=== PATIENT | male | born 1930 | race Caucasian/White ===

== ENCOUNTER 2016-10-11 11:29 | Outpatient (CLI) | payer OTHER ==
[~2016-10-11 11:29] MED LIST: FLOMAX0.4 MG PO; FLUTICASONE PR50 MCG; LIDODERM5 % TOP; MIRALAX3350 N1 PO; MIRTAZAPINE30 MG PO; MORPHINE SULFAT30 M4 PO; OXAYDO5 MG PO; PRILOSEC20 MG PO; TIZANIDINE HCL2 MG PO; TRAZODONE HCL50 MG PO; TRIAMCINOLONE A0.11 TOP; VOLTAREN1 % TOP
--- NOTE | 2016-10-11 12:14 | DIAGNOSTIC IMAGING REPORT ---
PROCEDURE: XR CHEST 2 VIEW INDICATION: PNEUMONIA TECHNIQUE: PA and lateral views. COMPARISON: Chest 07/09/2016 FINDINGS: Left lower lobe and lingular infiltrate, volume loss and pleural effusion. Right lung is clear. There is a hiatal hernia. IMPRESSION: 1. Left lower lobe and lingular infiltrate, volume loss and pleural effusion.
== END 2016-10-11 23:00 ==
LOC: XR SRH 11:29
DX: J18.9 Pneumonia, unspecified organism (principal); J90 Pleural effusion, not elsewhere classified

== ENCOUNTER 2016-10-19 09:21 | Emergency (ER) | payer OTHER ==
--- NOTE | 2016-10-19 11:24 | DIAGNOSTIC IMAGING REPORT ---
PROCEDURE: XR CHEST 2 VIEW INDICATION: COUGH TECHNIQUE: PA and lateral views. COMPARISON: Chest 10/11/2016 FINDINGS: Left lower lobe and lingular infiltrate, volume loss and pleural effusion. Right lung is clear. There is a hiatal hernia. IMPRESSION: 1. Left lower lobe and lingular infiltrate, volume loss and pleural effusion. 2. No change from 10/11/16
--- NOTE | 2016-10-19 11:30 | DIAGNOSTIC IMAGING REPORT ---
PROCEDURE: XR HIP 2VW W W/O AP PELVIS-RT INDICATION: PAIN IN JOINT TECHNIQUE: AP view of the pelvis and hips with lateral view of the right hip. COMPARISON: Hip and pelvis films 07/09/2016 FINDINGS: RIGHT HIP: Fracture has been fixed with the three long screws. Osseous structures and joint spaces are otherwise normal. PELVIS: Osseous pelvis is normal. There are metal surgical coils overlying the lower pelvis (prior hernia repairs). There are arterial vascular calcifications of the femoral arteries. IMPRESSION: 1. Three screws fixing the right femoral neck fracture. Anatomic alignment. 2. Negative pelvis.
--- NOTE | 2016-10-19 11:46 | ED ORDER SUMMARY ---
..... Patient: FATMATA SUAREZ OrderSheet [facility] VisitID: [id number] [address] [place] [address] 86y, M Registration Date/Time: 10/19/2016 ORDER SHEET Weight: 56.6 kg (stated) Allergies: None GENERAL ORDERS: Chest 2V Urgent (09:57 10/19/2016 Ayala SHEPHERD) (Ack 10:04 Leti) (10:21 SRoberts R.N.) Hip 2V Right w AP Pelvis Urgent (09:57 10/19/2016 Ayala SHEPHERD) (Ack 10:04 Leti) (10:21 SRoberts R.N.) MEDICATION ORDERS: Toradol IM 60 mg (NOW) (11:41 10/19/2016 Ayala SHEPHERD) (11:58 EBENullivan R.N.) IV FLUIDS: ORDER SHEET NOTES: [Electronically signed by Gini Salvador R.N. (12:03 10/19/2016)] [Electronically signed by Robinson Ta MD (13:25 10/19/2016)] [Electronically locked/signed by Gini Salvador R.N. (12:03 10/19/2016)]
--- NOTE | 2016-10-19 11:46 | ED CLINICAL REPORT ---
Clinical Report - Physicians/Mid Levels [facility] [address] [place] [address] 10/19/2016 9:22 [id number] Time Seen: 09:49 Oct 19 2016. Arrived- By private vehicle. Historian- patient. Note: (Surgery on the right hip 3 months ago for a fracture.). CPT: ER phys charges level 4 (#[id number]). HISTORY OF PRESENT ILLNESS Chief Complaint: LOWER EXTREMITY PAIN. This started today and is still present (Worked hard outside yesterday and may be the reason for the hip pain.). Severity is described as being moderate. The quality is noted to be sharp, aching and "pain". No radiation. Symptoms located in the area of the right hip. The patient has not had redness. No swelling, bladder dysfunction, bowel dysfunction, sensory loss or motor loss. He has had difficulty walking. Patient denies an injury. Similar symptoms previously: None. Recent medical care: Not recently seen/assessed. REVIEW OF SYSTEMS No cough, chest pain, difficulty breathing, fever or skin rash. No enlarged lymph nodes, neck pain, back pain, abdominal pain or vomiting. chronic right knee pain, Recently finished antibiotics for pneumonia. Feels pain with breath on the left side. Has a cough. All systems otherwise negative, except as recorded above. PAST HISTORY ( Atrial Fibrillation. Femur Fracture. Anxiety Reaction. Dementia. Sleep Apnea. Arthritis. Allergic Rhinitis. Carpal Tunnel Syndrome. Folkuno-Qkinu-Zasdo disease. Constipation. Chronic pain. Hemorrhoids. ADDITIONAL SURGERIES: Foot surgery. Hernia Repair. Leg surgery). Medications: Flomax Oral 0.4 mg, daily. Fluticasone Propionate Nasal (Suspension 50 mcg/act) 2 sprays each nare, daily. Lidoderm External (Patch 5 %), every 12 hrs. MiraLax Oral 1 packet, daily. Mirtazapine Oral 30 mg, at bedtime. MS Contin Oral (Tablet Extended Release 30 mg) 1 tablet, 2x a day. Omeprazole Oral 20 mg, daily. OxyCODONE HCl Oral 5 mg, 3every 4 hrs as needed. TiZANidine HCl Oral (Capsule 2 mg) 1 capsule, 3x a day. TraZODone HCl Oral 25-100mg , at bedtime. Triamcinolone Acetonide External. Voltaren Gel, 4x a day (2 gm upper extremity 4gm lower extremity). Allergies: None. SOCIAL HISTORY Never smoker. No alcohol use or drug use. ADDITIONAL NOTES The nursing notes have been reviewed. PHYSICAL EXAM Vital Signs: 10/19/2016 09:48 BP: 125/69. HR: 65. RR: 16. O2 saturation: 97%. Pain level now: 01/02. 10/19/2016 09:37 Temp: 97.9 F. Appearance: Alert. Patient in mild distress. Eyes: Eyes normal inspection. ENT: Pharynx normal. Neck: Normal inspection. CVS: Normal heart rate and rhythm. Heart sounds normal. Respiratory: No respiratory distress. Breath sounds normal. Abdomen: Soft and nontender. Back: No tenderness. Skin: Skin intact. Skin warm. Normal skin color. Extremities: Right hip: mild tenderness located in the anterior and lateral aspect of the hip. Limited ROM secondary to pain (diminished external and internal rotation). Neurovascular intact distally. No swelling, laceration, abrasion, ecchymosis or deformity. Extremities otherwise negative. Neuro: Oriented X 3. No motor deficit. No sensory deficit. Reflexes normal. LABS, X-RAYS, AND EKG Chest X-ray: Infiltrate in the left lower lobe. Medium left pleural effusion present. (Unchanged from 1 week ago.). Views: PA and lateral. Technique: good. The X-rays were independently viewed by me and interpreted by the radiologist. A comparison with prior films reveals that the findings are unchanged. Rt Hip X-ray: (3 screws in the femoral neck. No acute findings.). Views: 2 view hip series. Technique: good. The X-rays were independently viewed by me and interpreted by the radiologist. PROGRESS AND PROCEDURES Course of Care: Tordadol 60 mg IM. Patient is stable. Patient/family counseled. Disposition: Discharged. Condition: stable. CLINICAL IMPRESSION Right hip pain Resolving pneumonia. INSTRUCTIONS Apply ice for 15-20 minutes three times a day for one days followed by moist heat 15-20 minutes three times a day for one weeks. You may walk and bear weight as tolerated. Warnings: Further evaluation is necessary. GENERAL WARNINGS: Return or contact your physician immediately if your condition worsens or changes unexpectedly, if not improving as expected, or if other problems arise. Your Current Medications: CONTINUE TAKING THE FOLLOWING MEDICATIONS: Flomax Oral : 0.4 mg daily. Fluticasone Propionate Nasal : Suspension 50 mcg/act, 2 sprays each nare daily. Lidoderm External : Patch 5 %, every 12 hrs. MiraLax Oral : 1 packet daily. Mirtazapine Oral : 30 mg at bedtime. MS Contin Oral : Tablet Extended Release 30 mg, 1 tablet 2x a day. Omeprazole Oral : 20 mg daily. OxyCODONE HCl Oral : 5 mg 3every 4 hrs, prn. TiZANidine HCl Oral : Capsule 2 mg, 1 capsule 3x a day. TraZODone HCl Oral : 25-100mg at bedtime. Triamcinolone Acetonide External. Voltaren Gel* : 4x a day, 2 gm upper extremity 4gm lower extremity. Follow-up: Follow up with an orthopedic surgeon in one week. Call for the next available appointment. Understanding of the discharge instructions verbalized by patient. Discharge instructions reviewed with and understanding was verbalized by spouse. Follow-up with: Rodri Nguyen MD, [facility], , [facility], [address] [place] [address] Follow up in one week. Call for an appointment. (Electronically signed by Robinson Ta MD 10/19/2016 13:25)
--- NOTE | 2016-10-19 11:46 | ED ORDER SUMMARY ---
..... Patient: FATMATA SUAREZ OrderSheet [facility] VisitID: [id number] [address] [place] [address] 86y, M Registration Date/Time: 10/19/2016 ORDER SHEET Weight: 56.6 kg (stated) Allergies: None GENERAL ORDERS: Chest 2V Urgent (09:57 10/19/2016 Ayala SHEPHERD) (Ack 10:04 Leti) (10:21 SRoberts R.N.) Hip 2V Right w AP Pelvis Urgent (09:57 10/19/2016 Ayala SHEPHERD) (Ack 10:04 Leti) (10:21 SRoberts R.N.) MEDICATION ORDERS: Toradol IM 60 mg (NOW) (11:41 10/19/2016 Ayala SHEPHERD) (11:58 EBENullivan R.N.) IV FLUIDS: ORDER SHEET NOTES: [Electronically signed by Gini Salvador R.N. (12:03 10/19/2016)] [Electronically signed by Robinson Ta MD (13:25 10/19/2016)] [Electronically locked/signed by Gini Salvador R.N. (12:03 10/19/2016)]
--- NOTE | 2016-10-19 11:46 | ED NURSING NOTES ---
Clinical Report - Nurses [facility] [address] [place] [address] 10/19/2016 9:22 Patient: FATMATA SUAREZ TRIAGE Triage time 09:39. Acuity: LEVEL 4. Chief Complaint: RIGHT LOWER EXTREMITY PAIN. Location of symptoms- (Pt fell in June 2015, hip was pinned, this morning, pt felt like the pins were slipping around this morning in the hip). Alert. --09:45 Gini Salvador R.N. 09:36 10/19/16. Temp: 97.9 F. --09:45 Gini Salvador R.N. 09:48 10/19/16. BP: 125/69. HR: 65. RR: 16. O2 saturation: 97%. Pain level now: 01/02. --09:49 Gini Salvador R.N. Weight: 56.6 kg stated. Height/Length: 67 inches Per Patient. BMI: 19.6. --09:40 Gini Salvador R.N. Medications Flomax Oral 0.4 mg, daily. Fluticasone Propionate Nasal (Suspension 50 mcg/act) 2 sprays each nare, daily. Lidoderm External (Patch 5 %), every 12 hrs. MiraLax Oral 1 packet, daily. Mirtazapine Oral 30 mg, at bedtime. MS Contin Oral (Tablet Extended Release 30 mg) 1 tablet, 2x a day. Omeprazole Oral 20 mg, daily. OxyCODONE HCl Oral 5 mg, 3every 4 hrs as needed. TiZANidine HCl Oral (Capsule 2 mg) 1 capsule, 3x a day. TraZODone HCl Oral 25-100mg , at bedtime. Triamcinolone Acetonide External. Voltaren Gel, 4x a day (2 gm upper extremity 4gm lower extremity). --09:44 Gini Salvador R.N. Allergies None. --09:44 Gini Salvador R.N. History Arrived by private vehicle. Historian: patient. Accompanied by spouse. Primary physician (Patrick). ( Pt and called Dr Nguyen, to be seen, and was sent here for "an x ray"). ( Pt wants chest x ray). ( "pneumonia", has had 2 courses of antibiotics). PAST MEDICAL HX: Immunizations: up-to-date. SOCIAL HX: Never smoker. Alcohol use. (in past only). No drug use. --09:45 Gini Salvador R.N. FUNCTIONAL ASSESSMENT: Functional assessment performed: hearing impairment present. --09:45 Gini Salvador R.N. PROBLEMS: Atrial Fibrillation. Femur Fracture. Anxiety Reaction. Dementia. Sleep Apnea. Arthritis. Allergic Rhinitis. Carpal Tunnel Syndrome. Aqtbsdz-Kxzjj-Wzteh disease. Constipation. Chronic pain. Hemorrhoids. --:43 Gini Salvador R.N. ADDITIONAL SURGERIES: Foot surgery. Hernia Repair. Leg surgery . --:43 Gini Salvador R.N. Interventions ID band on patient. To room. --09:45 Gini Salvador R.N. PHYSICAL ASSESSMENT 09:45 10/19/16. GENERAL / NEURO / PSYCH: Oriented X 4. Alert. Appears in no acute distress. --09:45 Gini Salvador R.N. NURSING PROGRESS NOTES 09:45 10/19/16. Patient identifiers checked. Call light placed in reach. Bed placed in lowest position. Patient ready for evaluation- chart flagged. --09:45 iGni Salvador R.N. <<STRICKEN ENTRY-- 11:53 10/19/2016 Toradol (Ketorolac Tromethamine) IM 60 mg given. Allergies verified and confirmed 5 rights. --11:58 Gini Salvador R.N. --END STRIKE>> Change to Details. --12:02 Gini Salvador R.N. 11:53 10/19/2016 Toradol (Ketorolac Tromethamine) IM 60 mg given. Given in the left gluteus miles. Allergies verified and confirmed 5 rights. --12:02 Gini Salvador R.N. DISPOSITION / DISCHARGE Departure time: 1154. Condition at departure: improved. No learning barriers present. Discharge instructions provided and reviewed with the patient. Reviewed referral to family practice for followup. Verbalized understanding. Written instructions provided. The patient was discharged home. He left the Emergency Department ambulatory and via private vehicle. --12:00 Gini Salvaodr R.N. 11:54 10/19/16. BP: 152/81. HR: 67. RR: 18. O2 saturation: 97%. Pain level now: 01/02. --12:00 Gini Salvador R.N. Locked/Released at 10/19/2016 12:03 by Gini Salvador R.N.
--- NOTE | 2016-10-19 11:46 | ED CLINICAL REPORT ---
Clinical Report - Physicians/Mid Levels [facility] [address] [place] [address] 10/19/2016 9:22 [id number] Time Seen: 09:49 Oct 19 2016. Arrived- By private vehicle. Historian- patient. Note: (Surgery on the right hip 3 months ago for a fracture.). CPT: ER phys charges level 4 (#[id number]). HISTORY OF PRESENT ILLNESS Chief Complaint: LOWER EXTREMITY PAIN. This started today and is still present (Worked hard outside yesterday and may be the reason for the hip pain.). Severity is described as being moderate. The quality is noted to be sharp, aching and "pain". No radiation. Symptoms located in the area of the right hip. The patient has not had redness. No swelling, bladder dysfunction, bowel dysfunction, sensory loss or motor loss. He has had difficulty walking. Patient denies an injury. Similar symptoms previously: None. Recent medical care: Not recently seen/assessed. REVIEW OF SYSTEMS No cough, chest pain, difficulty breathing, fever or skin rash. No enlarged lymph nodes, neck pain, back pain, abdominal pain or vomiting. chronic right knee pain, Recently finished antibiotics for pneumonia. Feels pain with breath on the left side. Has a cough. All systems otherwise negative, except as recorded above. PAST HISTORY ( Atrial Fibrillation. Femur Fracture. Anxiety Reaction. Dementia. Sleep Apnea. Arthritis. Allergic Rhinitis. Carpal Tunnel Syndrome. Wvenouj-Ubkdi-Shhqw disease. Constipation. Chronic pain. Hemorrhoids. ADDITIONAL SURGERIES: Foot surgery. Hernia Repair. Leg surgery). Medications: Flomax Oral 0.4 mg, daily. Fluticasone Propionate Nasal (Suspension 50 mcg/act) 2 sprays each nare, daily. Lidoderm External (Patch 5 %), every 12 hrs. MiraLax Oral 1 packet, daily. Mirtazapine Oral 30 mg, at bedtime. MS Contin Oral (Tablet Extended Release 30 mg) 1 tablet, 2x a day. Omeprazole Oral 20 mg, daily. OxyCODONE HCl Oral 5 mg, 3every 4 hrs as needed. TiZANidine HCl Oral (Capsule 2 mg) 1 capsule, 3x a day. TraZODone HCl Oral 25-100mg , at bedtime. Triamcinolone Acetonide External. Voltaren Gel, 4x a day (2 gm upper extremity 4gm lower extremity). Allergies: None. SOCIAL HISTORY Never smoker. No alcohol use or drug use. ADDITIONAL NOTES The nursing notes have been reviewed. PHYSICAL EXAM Vital Signs: 10/19/2016 09:48 BP: 125/69. HR: 65. RR: 16. O2 saturation: 97%. Pain level now: 01/02. 10/19/2016 09:37 Temp: 97.9 F. Appearance: Alert. Patient in mild distress. Eyes: Eyes normal inspection. ENT: Pharynx normal. Neck: Normal inspection. CVS: Normal heart rate and rhythm. Heart sounds normal. Respiratory: No respiratory distress. Breath sounds normal. Abdomen: Soft and nontender. Back: No tenderness. Skin: Skin intact. Skin warm. Normal skin color. Extremities: Right hip: mild tenderness located in the anterior and lateral aspect of the hip. Limited ROM secondary to pain (diminished external and internal rotation). Neurovascular intact distally. No swelling, laceration, abrasion, ecchymosis or deformity. Extremities otherwise negative. Neuro: Oriented X 3. No motor deficit. No sensory deficit. Reflexes normal. LABS, X-RAYS, AND EKG Chest X-ray: Infiltrate in the left lower lobe. Medium left pleural effusion present. (Unchanged from 1 week ago.). Views: PA and lateral. Technique: good. The X-rays were independently viewed by me and interpreted by the radiologist. A comparison with prior films reveals that the findings are unchanged. Rt Hip X-ray: (3 screws in the femoral neck. No acute findings.). Views: 2 view hip series. Technique: good. The X-rays were independently viewed by me and interpreted by the radiologist. PROGRESS AND PROCEDURES Course of Care: Tordadol 60 mg IM. Patient is stable. Patient/family counseled. Disposition: Discharged. Condition: stable. CLINICAL IMPRESSION Right hip pain Resolving pneumonia. INSTRUCTIONS Apply ice for 15-20 minutes three times a day for one days followed by moist heat 15-20 minutes three times a day for one weeks. You may walk and bear weight as tolerated. Warnings: Further evaluation is necessary. GENERAL WARNINGS: Return or contact your physician immediately if your condition worsens or changes unexpectedly, if not improving as expected, or if other problems arise. Your Current Medications: CONTINUE TAKING THE FOLLOWING MEDICATIONS: Flomax Oral : 0.4 mg daily. Fluticasone Propionate Nasal : Suspension 50 mcg/act, 2 sprays each nare daily. Lidoderm External : Patch 5 %, every 12 hrs. MiraLax Oral : 1 packet daily. Mirtazapine Oral : 30 mg at bedtime. MS Contin Oral : Tablet Extended Release 30 mg, 1 tablet 2x a day. Omeprazole Oral : 20 mg daily. OxyCODONE HCl Oral : 5 mg 3every 4 hrs, prn. TiZANidine HCl Oral : Capsule 2 mg, 1 capsule 3x a day. TraZODone HCl Oral : 25-100mg at bedtime. Triamcinolone Acetonide External. Voltaren Gel* : 4x a day, 2 gm upper extremity 4gm lower extremity. Follow-up: Follow up with an orthopedic surgeon in one week. Call for the next available appointment. Understanding of the discharge instructions verbalized by patient. Discharge instructions reviewed with and understanding was verbalized by spouse. Follow-up with: Rodri Nguyen MD, [facility], , [facility], [address] [place] [address] Follow up in one week. Call for an appointment. (Electronically signed by Robinson Ta MD 10/19/2016 13:25)
--- NOTE | 2016-10-19 11:46 | ED NURSING NOTES ---
Clinical Report - Nurses [facility] [address] [place] [address] 10/19/2016 9:22 Patient: FATMATA SUAREZ TRIAGE Triage time 09:39. Acuity: LEVEL 4. Chief Complaint: RIGHT LOWER EXTREMITY PAIN. Location of symptoms- (Pt fell in June 2015, hip was pinned, this morning, pt felt like the pins were slipping around this morning in the hip). Alert. --09:45 Gini Salvador R.N. 09:36 10/19/16. Temp: 97.9 F. --09:45 Gini Salvador R.N. 09:48 10/19/16. BP: 125/69. HR: 65. RR: 16. O2 saturation: 97%. Pain level now: 01/02. --09:49 Gini Salavdor R.N. Weight: 56.6 kg stated. Height/Length: 67 inches Per Patient. BMI: 19.6. --09:40 Gini Salvador R.N. Medications Flomax Oral 0.4 mg, daily. Fluticasone Propionate Nasal (Suspension 50 mcg/act) 2 sprays each nare, daily. Lidoderm External (Patch 5 %), every 12 hrs. MiraLax Oral 1 packet, daily. Mirtazapine Oral 30 mg, at bedtime. MS Contin Oral (Tablet Extended Release 30 mg) 1 tablet, 2x a day. Omeprazole Oral 20 mg, daily. OxyCODONE HCl Oral 5 mg, 3every 4 hrs as needed. TiZANidine HCl Oral (Capsule 2 mg) 1 capsule, 3x a day. TraZODone HCl Oral 25-100mg , at bedtime. Triamcinolone Acetonide External. Voltaren Gel, 4x a day (2 gm upper extremity 4gm lower extremity). --09:44 Gini Salvador R.N. Allergies None. --09:44 Gini Salvador R.N. History Arrived by private vehicle. Historian: patient. Accompanied by spouse. Primary physician (Patrick). ( Pt and called Dr Nguyen, to be seen, and was sent here for "an x ray"). ( Pt wants chest x ray). ( "pneumonia", has had 2 courses of antibiotics). PAST MEDICAL HX: Immunizations: up-to-date. SOCIAL HX: Never smoker. Alcohol use. (in past only). No drug use. --09:45 Gini Salvador R.N. FUNCTIONAL ASSESSMENT: Functional assessment performed: hearing impairment present. --09:45 Gini Salvador R.N. PROBLEMS: Atrial Fibrillation. Femur Fracture. Anxiety Reaction. Dementia. Sleep Apnea. Arthritis. Allergic Rhinitis. Carpal Tunnel Syndrome. Ywpqecg-Uifsl-Zoywp disease. Constipation. Chronic pain. Hemorrhoids. --:43 Gnii Salvador R.N. ADDITIONAL SURGERIES: Foot surgery. Hernia Repair. Leg surgery . --:43 Gini Salvador R.N. Interventions ID band on patient. To room. --09:45 Gini Salvador R.N. PHYSICAL ASSESSMENT 09:45 10/19/16. GENERAL / NEURO / PSYCH: Oriented X 4. Alert. Appears in no acute distress. --09:45 Gini Salvador R.N. NURSING PROGRESS NOTES 09:45 10/19/16. Patient identifiers checked. Call light placed in reach. Bed placed in lowest position. Patient ready for evaluation- chart flagged. --09:45 Gini Salvador R.N. <<STRICKEN ENTRY-- 11:53 10/19/2016 Toradol (Ketorolac Tromethamine) IM 60 mg given. Allergies verified and confirmed 5 rights. --11:58 Gini Salvador R.N. --END STRIKE>> Change to Details. --12:02 Gini Salvador R.N. 11:53 10/19/2016 Toradol (Ketorolac Tromethamine) IM 60 mg given. Given in the left gluteus miles. Allergies verified and confirmed 5 rights. --12:02 Gini Salvador R.N. DISPOSITION / DISCHARGE Departure time: 1154. Condition at departure: improved. No learning barriers present. Discharge instructions provided and reviewed with the patient. Reviewed referral to family practice for followup. Verbalized understanding. Written instructions provided. The patient was discharged home. He left the Emergency Department ambulatory and via private vehicle. --12:00 Gini Salvador R.N. 11:54 10/19/16. BP: 152/81. HR: 67. RR: 18. O2 saturation: 97%. Pain level now: 01/02. --12:00 Gini Salvador R.N. Locked/Released at 10/19/2016 12:03 by Gini Salvador R.N.
--- NOTE | 2016-10-19 13:25 | ED DISCHARGE INSTRUCTIONS ---
Patient: FATMATA SUAREZ General Instructions [facility] VisitID: [id number] [address] [place] [address] 86y, M Registration Date/Time: 10/19/2016 Right hip pain Resolving pneumonia. INSTRUCTIONS Apply ice for 15-20 minutes three times a day for one days followed by moist heat 15-20 minutes three times a day for one weeks. You may walk and bear weight as tolerated. Warnings: Further evaluation is necessary. GENERAL WARNINGS: Return or contact your physician immediately if your condition worsens or changes unexpectedly, if not improving as expected, or if other problems arise. Your Current Medications: CONTINUE TAKING THE FOLLOWING MEDICATIONS: Flomax Oral : 0.4 mg daily. Fluticasone Propionate Nasal : Suspension 50 mcg/act, 2 sprays each nare daily. Lidoderm External : Patch 5 %, every 12 hrs. MiraLax Oral : 1 packet daily. Mirtazapine Oral : 30 mg at bedtime. MS Contin Oral : Tablet Extended Release 30 mg, 1 tablet 2x a day. Omeprazole Oral : 20 mg daily. OxyCODONE HCl Oral : 5 mg 3every 4 hrs, prn. TiZANidine HCl Oral : Capsule 2 mg, 1 capsule 3x a day. TraZODone HCl Oral : 25-100mg at bedtime. Triamcinolone Acetonide External. Voltaren Gel* : 4x a day, 2 gm upper extremity 4gm lower extremity. Follow-up: Follow up with an orthopedic surgeon in one week. Call for the next available appointment. Understanding of the discharge instructions verbalized by patient. Discharge instructions reviewed with and understanding was verbalized by spouse. Follow-up with: Rodri Nguyen MD, [facility], , [facility], [address] [place] [address] Follow up in one week. Call for an appointment. You may walk and bear weight as tolerated. (Electronically signed by Robinson Ta MD 10/19/2016 13:25)
--- NOTE | 2016-10-19 13:25 | ED MED RECONCILIATION SUMMARY ---
Patient: FATMATA SUAREZ Medication Reconciliation Report [facility] VisitID: [id number] [address] [place] [address] 86y, M Registration Date/Time: 10/19/2016 Weight: 56.6 kg Height/Length: 67 in. BMI: 19.6 ALLERGIES: None The patient's Home Medications are listed below: CONTINUE TAKING THE FOLLOWING MEDICATIONS: Flomax Oral 0.4 mg, daily Fluticasone Propionate Nasal (50 mcg/act) 2 sprays each nare, daily Lidoderm External (5 %), every 12 hrs MiraLax Oral 1 packet, daily Mirtazapine Oral 30 mg, at bedtime MS Contin Oral (30 mg) 1 tablet, 2x a day Omeprazole Oral 20 mg, daily OxyCODONE HCl Oral 5 mg, 3every 4 hrs TiZANidine HCl Oral (2 mg) 1 capsule, 3x a day TraZODone HCl Oral 25-100mg , at bedtime Triamcinolone Acetonide External Voltaren Gel, 4x a day, 2 gm upper [id number] lower extremity The source(s) of the original Home Medication information: Not obtained. The following Medications were given to the patient in the Emergency Department: Toradol [IM] IM 60 mg, administered: 10/19/2016 11:53:00 AM The following Medications were prescribed to the patient: None.
--- NOTE | 2016-10-19 13:25 | ED MED RECONCILIATION SUMMARY ---
Patient: FATMATA SUAREZ Medication Reconciliation Report [facility] VisitID: [id number] [address] [place] [address] 86y, M Registration Date/Time: 10/19/2016 Weight: 56.6 kg Height/Length: 67 in. BMI: 19.6 ALLERGIES: None The patient's Home Medications are listed below: CONTINUE TAKING THE FOLLOWING MEDICATIONS: Flomax Oral 0.4 mg, daily Fluticasone Propionate Nasal (50 mcg/act) 2 sprays each nare, daily Lidoderm External (5 %), every 12 hrs MiraLax Oral 1 packet, daily Mirtazapine Oral 30 mg, at bedtime MS Contin Oral (30 mg) 1 tablet, 2x a day Omeprazole Oral 20 mg, daily OxyCODONE HCl Oral 5 mg, 3every 4 hrs TiZANidine HCl Oral (2 mg) 1 capsule, 3x a day TraZODone HCl Oral 25-100mg , at bedtime Triamcinolone Acetonide External Voltaren Gel, 4x a day, 2 gm upper [id number] lower extremity The source(s) of the original Home Medication information: Not obtained. The following Medications were given to the patient in the Emergency Department: Toradol [IM] IM 60 mg, administered: 10/19/2016 11:53:00 AM The following Medications were prescribed to the patient: None.
--- NOTE | 2016-10-19 13:25 | ED DISCHARGE INSTRUCTIONS ---
Patient: FATMATA SUAREZ General Instructions [facility] VisitID: [id number] [address] [place] [address] 86y, M Registration Date/Time: 10/19/2016 Right hip pain Resolving pneumonia. INSTRUCTIONS Apply ice for 15-20 minutes three times a day for one days followed by moist heat 15-20 minutes three times a day for one weeks. You may walk and bear weight as tolerated. Warnings: Further evaluation is necessary. GENERAL WARNINGS: Return or contact your physician immediately if your condition worsens or changes unexpectedly, if not improving as expected, or if other problems arise. Your Current Medications: CONTINUE TAKING THE FOLLOWING MEDICATIONS: Flomax Oral : 0.4 mg daily. Fluticasone Propionate Nasal : Suspension 50 mcg/act, 2 sprays each nare daily. Lidoderm External : Patch 5 %, every 12 hrs. MiraLax Oral : 1 packet daily. Mirtazapine Oral : 30 mg at bedtime. MS Contin Oral : Tablet Extended Release 30 mg, 1 tablet 2x a day. Omeprazole Oral : 20 mg daily. OxyCODONE HCl Oral : 5 mg 3every 4 hrs, prn. TiZANidine HCl Oral : Capsule 2 mg, 1 capsule 3x a day. TraZODone HCl Oral : 25-100mg at bedtime. Triamcinolone Acetonide External. Voltaren Gel* : 4x a day, 2 gm upper extremity 4gm lower extremity. Follow-up: Follow up with an orthopedic surgeon in one week. Call for the next available appointment. Understanding of the discharge instructions verbalized by patient. Discharge instructions reviewed with and understanding was verbalized by spouse. Follow-up with: Rodri Nguyen MD, [facility], , [facility], [address] [place] [address] Follow up in one week. Call for an appointment. You may walk and bear weight as tolerated. (Electronically signed by Robinson Ta MD 10/19/2016 13:25)
--- NOTE | 2016-10-19 13:25 | ED MAR SUMMARY ---
..... Medication Administration Record [facility] [address] [place] [address] Patient: FATMATA SUAREZ Visit ID: [id number] 86y, M Weight: 56.6 kg Height/Length: 67 in BMI: 19.6 ALLERGIES: None Given 11:53 10/19/2016 Gini Salvador R.N. Medication Administered: TORADOL [IM] (KETOROLAC TROMETHAMINE), Dose: 60 mg IM. Medication Ordered: Toradol IM 60 mg (NOW).
--- NOTE | 2016-10-19 13:25 | ED MAR SUMMARY ---
..... Medication Administration Record [facility] [address] [place] [address] Patient: FATMATA SUAREZ Visit ID: [id number] 86y, M Weight: 56.6 kg Height/Length: 67 in BMI: 19.6 ALLERGIES: None Given 11:53 10/19/2016 Gini Salvador R.N. Medication Administered: TORADOL [IM] (KETOROLAC TROMETHAMINE), Dose: 60 mg IM. Medication Ordered: Toradol IM 60 mg (NOW).
== END 2016-10-19 11:54 | disposition home or self-care (01) ==
LOC: ED SRH 09:21
DX: M25.551 Pain in right hip (principal); J15.9 Unspecified bacterial pneumonia; Z79.891 Long term (current) use of opiate analgesic; Z79.899 Other long term (current) drug therapy

== ENCOUNTER 2016-11-23 11:05 | Outpatient (CLI) | payer OTHER ==
--- NOTE | 2016-11-23 11:26 | DIAGNOSTIC IMAGING REPORT ---
PROCEDURE: XR CHEST 2 VIEW INDICATION: PENUMONIA TECHNIQUE: PA and lateral views. COMPARISON: Chests 10/19 and 10/11/2016 FINDINGS: No change from 10/11/2016 in the left lower lobe and lingular infiltrate, volume loss and pleural effusion. Right lung is clear. There is a hiatal hernia. IMPRESSION: 1. No change from 10/11/2016 in the left lower lobe and lingular infiltrate, volume loss and pleural effusion.
== END 2016-11-23 23:00 ==
LOC: XR SRH 11:05
DX: J18.9 Pneumonia, unspecified organism (principal); R91.8 Other nonspecific abnormal finding of lung field; J90 Pleural effusion, not elsewhere classified

== ENCOUNTER 2016-12-06 09:17 | Outpatient (CLI) | payer OTHER ==
--- NOTE | 2016-12-06 10:21 | DIAGNOSTIC IMAGING REPORT ---
PROCEDURE: CT THORAX WITH CONTRAST INDICATION: Persistent pneumonia. TECHNIQUE: 100 ml of Isovue 300 was injected intravenously and axial images were obtained of the chest with coronal and sagittal reformations. COMPARISON: Chest x-rays 11/23/2016, 10/19/[address] pulmonary angiogram 03/30/2016. FINDINGS: 2 mm anterior right upper lobe (image 20) and 2 mm anterior right upper lobe (image 21) nodules, unchanged. 3 mm left lower lobe nodule (image 34 ) not clearly identified on the prior study. Mild posterior left upper lobe subsegmental atelectasis/scarring but no evidence of a central obstructing lesion. New mild right and marked progression of large left pleural effusions. Calcified mediastinal and left hilar lymph nodes. Stable 1.3 cm precarinal lymph node. Mild atherosclerosis of the aorta but no dissection or aneurysm. Calcified aortic valve. Coronary atherosclerosis. Heart size is normal. Large hiatal hernia. Moderate degenerative changes of the spine., chronic mild T11 compression fracture. Mild anasarca. IMPRESSION: 1. Mild right and large left pleural effusions with normal heart size and mild anasarca. This may be due to low albumin state, liver or renal disease. Recommend ultrasound guided thoracentesis 2. Mild posterior left upper lobe subsegmental atelectasis/scarring but no evidence of a central obstructing lesion 3. Tiny bilateral pulmonary nodules, indeterminate but likely post inflammatory/granulomas 4. Calcified mediastinal and left hilar nodes 5. Calcified aortic valve 6. Large hiatal hernia. 7. Results discussed with Dr. Nguyen
== END 2016-12-06 23:00 ==
LOC: CT SRH 09:17
DX: J90 Pleural effusion, not elsewhere classified (principal); R91.1 Solitary pulmonary nodule; I70.0 Atherosclerosis of aorta; K44.9 Diaphragmatic hernia without obstruction or gangrene; J98.4 Other disorders of lung

== ENCOUNTER 2017-01-30 14:38 | Outpatient (CLI) | payer OTHER ==
--- NOTE | 2017-01-30 15:50 | DIAGNOSTIC IMAGING REPORT ---
PROCEDURE: XR FOOT 3 VIEWS - RIGHT INDICATION: CHRONIC WOUND ANTERIOR ANKLE TECHNIQUE: Three views. COMPARISON: None. FINDINGS: Status post ankle effusion. No evidence of osteomyelitis. No cortical destruction or osteolysis. 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 IMPRESSION: 1. Status post ankle fusion with subcutaneous debris anteriorly. 2. No evidence of osteolysis or cortical destruction to suggest osteomyelitis.
== END 2017-01-30 23:00 ==
LOC: XR SRH 14:38
DX: S91.001A Unspecified open wound, right ankle, initial encounter (principal); M19.071 Primary osteoarthritis, right ankle and foot; Z98.1 Arthrodesis status

== ENCOUNTER 2017-02-11 09:44 | Outpatient (CLI) | payer OTHER ==
--- NOTE | 2017-02-11 12:43 | DIAGNOSTIC IMAGING REPORT ---
PROCEDURE: US ART LOWER EXT WITH ARABELLA-B/L INDICATION: RT LEG WOUND TECHNIQUE: Preexercise ABIs were performed. Color Doppler duplex imaging of the lower extremities was performed. COMPARISON: None. FINDINGS: Cardiac arrhythmia. RIGHT LOWER EXTREMITY: ABIs: Resting ABIs for the posterior tibial and dorsalis pedis were greater than 1.4 (not applicable). VESSELS: Moderate atherosclerosis. Triphasic wave form of the external iliac, common femoral, mid and distal SFA with biphasic wave form elsewhere in the right lower extremity. RIGHT LOWER EXTREMITY PEAK SYSTOLIC VELOCITIES: External iliac: 38 cm/second. Common femoral artery: 43 cm/second. Profunda femoral artery: 27 cm/second. Proximal superficial femoral artery: 36 cm/second. Mid superficial femoral artery: 49 cm/second. Distal superficial femoral artery: 44 cm/second. Popliteal artery: 34 cm/second. Proximal posterior tibial artery: 34 cm/second. Proximal anterior tibial artery: 29 cm/second. Distal posterior tibial artery: 48 cm/second. Dorsalis pedis artery: 48 cm/second. LEFT LOWER EXTREMITY: ABIs: Resting ABIs of the posterior tibial dorsalis. For greater than 1.4 (not applicable). VESSELS: Moderate atherosclerosis. Moderate atherosclerosis with triphasic wave form from the external iliac artery to the distal SFA with biphasic wave form to the ankle. LEFT LOWER EXTREMITY PEAK SYSTOLIC VELOCITIES: External iliac: 42 cm/second. Common femoral artery: 35 cm/second. Profunda femoral artery: 29 cm/second. Proximal superficial femoral artery: 45 cm/second. Mid superficial femoral artery: 51 cm/second. Distal superficial femoral artery: 55 cm/second. Popliteal artery: 29 cm/second. Proximal posterior tibial artery: 52 cm/second. Proximal anterior tibial artery: 35 cm/second. Distal posterior tibial artery: 39 cm/second. Dorsalis pedis artery: 22 cm/second. IMPRESSION: 1. Cardiac arrhythmia 2. Moderate calcific atherosclerosis with bilateral resting ABIs indicative of stiff vessels. 3. No evidence of high-grade stenosis in either lower extremity.
== END 2017-02-12 15:46 | disposition home or self-care (01) ==
LOC: US SRH 09:44
DX: I70.201 Unspecified atherosclerosis of native arteries of extremities, right leg (principal); I49.9 Cardiac arrhythmia, unspecified